=== PATIENT | female | born 1975 | race American Indian/Alaskan Native ===

== ENCOUNTER 2017-09-28 10:30 | Emergency (ER) | payer OTHER ==
[2017-09-28 11:35] VITALS: BP 124/74
--- NOTE | 2017-09-28 12:13 | Emergency Department Report ---
ED Lower Extremity HPI - General Chief Complaint: Extremity Injury, Lower Stated Complaint: RIGHT ANKLE PAIN Time Seen by Provider: 09/28/17 11:57 Source: patient Mode of arrival: Ambulatory Limitations: No Limitations - History of Present Illness Initial Comments: This is a 42-year-old female nontoxic, well nourished in appearance, no acute signs of distress presents to the ED with c/o of rightl ankle pain. Patient stated she has a fracture of left ankle and has been putting a lot of weight on the right ankle. Patient denies any trauma to the area. Patient denies any joint redness, joint swelling, fever, chills, nausea, vomiting, chest pain or shortness breath. Patient denies abnormal or decreased gait. Patient denies any allergies or PMH. MD Complaint: ankle injury Injury: Ankle: Right, Left Severity: mild Severity scale (0 -10): 8 Improves With: immobilization Worsens With: weight bearing, movement Associated Symptoms: able to partially bear weight, ambulatory. denies: snap/ pop sensation, swelling, numbness, tingling, unable to bear weight - Related Data Previous Rx's Medication Instructions Recorded Last Taken Type HYDROcodone/APAP 5-325 [[place] 1 each PO Q6HR PRN #12 tablet 11/12/15 Unknown Rx 5/325] Tobramycin/Dexameth 0.3-0.1% 1 drops OS Q6H #1 bottle 11/12/15 Unknown Rx [Tobradex] Ibuprofen [Motrin] 600 mg PO Q8H PRN #30 tablet 09/28/17 Unknown Rx Allergies Allergy/AdvReac Type Severity Reaction Status Date / Time No Known Allergies Allergy Verified 11/12/15 07:46 ED Review of Systems ROS: Stated complaint: RIGHT ANKLE PAIN Other details as noted in HPI Constitutional: denies: chills, fever Eyes: denies: eye pain, eye discharge, vision change ENT: denies: ear pain, throat pain Respiratory: denies: cough, shortness of breath, wheezing Cardiovascular: denies: chest pain, palpitations Endocrine: no symptoms reported Gastrointestinal: denies: abdominal pain, nausea, diarrhea Genitourinary: denies: urgency, dysuria, discharge Musculoskeletal: arthralgia. denies: back pain, joint swelling Skin: denies: rash, lesions Neurological: denies: headache, weakness, paresthesias Psychiatric: denies: anxiety, depression Hematological/Lymphatic: denies: easy bleeding, easy bruising ED Past Medical Hx - Past Medical History Previous Medical History?: Yes Additional medical history: left ankle pain - Surgical History Past Surgical History?: Yes Hx Cholecystectomy: Yes Additional Surgical History: Hernia Repair, Tubal Ligation, , left ankle surgery - Social History Smoking Status: Current Every Day Smoker Substance Use Type: Alcohol - Medications Home Medications: Home Medications Medication Instructions Recorded Confirmed Last Taken Type HYDROcodone/APAP 5-325 [[place] 1 each PO Q6HR PRN #12 tablet 11/12/15 Unknown Rx 5/325] Tobramycin/Dexameth 0.3-0.1% 1 drops OS Q6H #1 bottle 11/12/15 Unknown Rx [Tobradex] Ibuprofen [Motrin] 600 mg PO Q8H PRN #30 tablet 09/28/17 Unknown Rx ED Physical Exam - General Limitations: No Limitations General appearance: alert, in no apparent distress - Head Head exam: Present: atraumatic, normocephalic - Eye Eye exam: Present: normal appearance Pupils: Present: normal accommodation - ENT ENT exam: Present: normal exam, mucous membranes moist - Neck Neck exam: Present: normal inspection, full ROM. Absent: tenderness, meningismus, lymphadenopathy - Respiratory Respiratory exam: Present: normal lung sounds bilaterally. Absent: respiratory distress, wheezes, rales, rhonchi, stridor, chest wall tenderness, accessory muscle use, decreased breath sounds, prolonged expiratory - Cardiovascular Cardiovascular Exam: Present: regular rate, normal rhythm, normal heart sounds. Absent: irregular rhythm, systolic murmur, diastolic murmur, rubs, gallop - GI/Abdominal GI/Abdominal exam: Present: soft, normal bowel sounds. Absent: distended, tenderness, guarding, rebound, rigid, diminished bowel sounds - Rectal Rectal exam: Present: deferred - Extremities Exam Extremities exam: Present: normal inspection, full ROM, tenderness, normal capillary refill. Absent: joint swelling, calf tenderness - Back Exam Back exam: Present: normal inspection, full ROM - Neurological Exam Neurological exam: Present: alert, oriented X3 - Psychiatric Psychiatric exam: Present: normal affect, normal mood - Skin Skin exam: Present: warm, dry, intact, normal color. Absent: rash ED Course Vital Signs 09/28/17 11:29 Temperature 98.7 F Pulse Rate 98 H Respiratory 20 Rate Blood Pressure 124/74 O2 Sat by Pulse 98 Oximetry - Reevaluation(s) Reevaluation #1: 09/28/17 12:20 Patient is speaking in full sentences with no signs of distress noted. ED Lower Extremity MDM - Medical Decision Making This is a 42-year-old female that presents with right ankle strain. Patient is stable and was examined by me. I referred patient to an orthopedic doctor for further evaluation for possible MRI. X-ray has been obtained and dictated by the radiologist. Patient is notified of the x-ray report with noted by the patient. Patient does have normal gait with no tenderness and no joint swelling. No ecchymosis. no joint redness or swelling. Not warm to touch. No signs of cellulites present. Patient received ankle stirrup and crutches and was educated by RN how to use crutches. Patient was instructed to RICE therapy. Patient received Motrin for pain. Patient is discharged with Motrin. At time of discharge, the patient does not seem toxic or ill in appearance. No acute signs of distress noted. Patient agrees to discharge treatment plan of care. No further questions noted by the patient. Critical care attestation.: If time is entered above; I have spent that time in minutes in the direct care of this critically ill patient, excluding procedure time. ED Disposition Clinical Impression: Right ankle strain Qualifiers: Encounter type: initial encounter Qualified Code(s): S96.911A - Strain of unspecified muscle and tendon at ankle and foot level, right foot, initial encounter Disposition: DC- TO HOME OR SELFCARE Is pt being admited?: No Does the pt Need Aspirin: No Condition: Stable Instructions: Ankle Exercises (GEN), RICE Therapy (ED), Ibuprofen (By mouth), Crutch Instructions (ED) Additional Instructions: Follow-up with a orthopedic doctor in 3-5 days or if symptoms worsen and continue return to emergency room as soon as possible. Prescriptions: Ibuprofen [Motrin] 600 mg PO Q8H PRN #30 tablet PRN Reason: Pain Referrals: PRIMARY CARE, [Primary Care Provider] - 3-5 Days MARION ANTONIO MD [Staff Physician] - 3-5 Days MICHAEL GASTELUM MD [Staff Physician] - 3-5 Days [facility] [Outside] - 3-5 Days [facility] [Outside] - 3-5 Days Forms: Work/School Release Form(ED)
[2017-09-28 12:41] LABS: HCG Qualitative,Urine Negative (Negative)
--- NOTE | 2017-09-28 13:18 | XRay Report ---
Bilateral ankles: Pain. Images of the right ankle demonstrates moderate edema of the soft tissues involving the leg and extending into the proximal foot. The bony structures and joints appear intact with good alignment and preservation of the joint spaces. Stabilization hardware is present on the left with a plate overlying the distal fibula and a fixation screw through the medial malleolus. There is good bony union in both locations with no displacement. The tibiotalar joint is aligned. The bones are well-mineralized. There is mild edema of the tissues in a nonspecific pattern similar to the right leg. Impressions: No acute findings. Nonspecific soft tissue edema bilaterally.
== END 2017-09-28 14:19 | disposition home or self-care (01) ==
LOC: ED 10:30
DX: S96.911A Strain of unspecified muscle and tendon at ankle and foot level, right foot, initial encounter (principal); F17.200 Nicotine dependence, unspecified, uncomplicated; X58.XXXA Exposure to other specified factors, initial encounter; Y93.89 Activity, other specified; Y92.89 Other specified places as the place of occurrence of the external cause; Y99.8 Other external cause status
CPT/HCPCS: 81025; 99284

== ENCOUNTER 2018-12-14 22:15 | Emergency (ER) | payer OTHER ==
[2018-12-14 22:28] VITALS: BP 121/79
--- NOTE | 2018-12-14 23:01 | Event Note ---
ED Screening Note Date of service: 12/14/18 Time: 22:55 ED Screening Note: 43 female comes in for abd pain and abd pressure times 1 week and getting worst. LMP 11/21/18. . Urinary frequency. This initial assessment/diagnostic orders/clinical plan/treatment(s) is/are subject to change based on patients health status, clinical progression and re- assessment by fellow clinical providers in the ED. Further treatment and workup at subsequent clinical providers discretion. Patient/guardian urged not to elope from the ED as their condition may be serious if not clinically assessed and managed. Initial orders include:
[2018-12-15 01:24] LABS: Bilirubin,Urine NEG (Negative); Blood,Urine MOD (Negative); Color,Urine Yellow (Yellow); Mucus,Urine 1+ /HPF; Protein,Urine <15 mg/dL mg/dL (Negative)
[2018-12-15 01:35] LABS: HCG Qualitative,Urine Negative (Negative)
[2018-12-15] MEDS ORDERED: TORADOL IV ONE (01:56)
[2018-12-15] MEDS ORDERED: ZOFRAN IV ONE (01:56)
[2018-12-15 03:00] LABS: Alanine Aminotransferase 9 units/L (7-56); Albumin 4.2 g/dL (3.9-5); BUN/Creatinine Ratio 12; Blood Urea Nitrogen 11 mg/dL (7-17); Calcium 9.1 mg/dL (8.4-10.2); Hemolysis Index 5
[2018-12-15 03:11] LABS: Hemoglobin 12.7 gm/dl (10.1-14.3); Mean Corpuscular HGB Conc 33 % (30-34); Mean Corpuscular Volume 89 fl (79-97); Red Blood Count 4.27 M/mm3 (3.65-5.03)
[2018-12-15 03:12] LABS: Basophils # (Auto) 0.1 K/mm3 (0.0-0.1); Eosinophils # (Auto) 0.6 K/mm3 (0.0-0.4); Eosinophils % (Auto) 4.3 % (0.0-4.3); Lymphocytes # (Auto) 4.2 K/mm3 (1.2-5.4); Lymphocytes % (Auto) 32.5 % (13.4-35.0); Mean Platelet Volume 7.9 fl (6-12); Monocytes # (Auto) 1.2 K/mm3 (0.0-0.8); Monocytes % (Auto) 9.3 % (0.0-7.3); Platelet Count 311 K/mm3 (140-440); Red Cell Distribution Width 13.9 % (13.2-15.2)
--- NOTE | 2018-12-15 03:12 | Cat Scan Report ---
. CT of the abdomen and pelvis without contrast INDICATION: Left flank pain and nausea COMPARISON: None FINDINGS: Lung bases are clear. The liver, spleen, pancreas, adrenal glands and kidneys all appear no rmal. There are no calculi seen in either kidney. No hydronephrosis or perinephric edema. No gross re nal masses. Gallbladder is been removed. No biliary tree dilation. No fluid or adenopathy in the uppe r abdomen. CT of the pelvis shows a normal appendix. Small ovarian cysts are seen without free fluid. Uterus is enlarged probably due to fibroids. There may be a suture line in the upper bladder or uterine fundus. No adenopathy. No hernia or bowel obstruction. No diverticulitis. No ureteral stones are seen. No st one fragments seen in the bladder. IMPRESSION: Probable fibroid uterus. No kidney stones or inflammatory process seen. Automated exposure control was utilized to diminish radiation dose. Signer Name: Prosper Sotelo MD Signed: 12/15/2018 3:08 AM Workstation Name: [id number]
--- NOTE | 2018-12-15 04:39 | Emergency Department Report ---
ED Abdominal Pain HPI - General Chief Complaint: Abdominal Pain Stated Complaint: ABD PAIN/HEADACHE Time Seen by Provider: 12/14/18 22:55 Source: patient Mode of arrival: Ambulatory Limitations: No Limitations - History of Present Illness Initial Comments: Patient is a 43-year-old -Japanese female medical history who presents to the ED with acute onset persistent intermittent abdominal pain with intermittent nausea and vomiting and cannot assess the last one week. Patient states that the pain is persistent, crampy and intermittent. Patient denies dizziness, fever, chills, diarrhea, low back pain, change in vision, vaginal bleeding, vaginal discharge, dyspareunia, chest pain, shortness of breath, headache, hematemesis, hematochezia, or dysuria or urinary frequency and urgency. MD Complaint: abdominal pain, other (Nausea and vomiting) -: Sudden, week(s) (1) Location: suprapubic Radiation: suprapubic Migration to: no migration Severity: severe Severity scale (0 -10): 6 Quality: cramping, aching Consistency: constant Improves With: nothing Worsens With: nothing Associated Symptoms: denies other symptoms, nausea, vomiting. denies: diarrhea, constipation, dysuria, hematochezia, melena, anorexia - Related Data LMP (females 10-50): last week Previous Rx's Medication Instructions Recorded Last Taken Type HYDROcodone/APAP 5-325 [[place] 1 each PO Q6HR PRN #12 tablet 11/12/15 Unknown Rx 5/325] Tobramycin/Dexameth 0.3-0.1% 1 drops OS Q6H #1 bottle 11/12/15 Unknown Rx [Tobradex] Ibuprofen [Motrin] 600 mg PO Q8H PRN #30 tablet 09/28/17 Unknown Rx Acetaminophen/Codeine [Tylenol 1 tab PO Q6H PRN #15 tab 12/15/18 Unknown Rx /Codeine # 3 tab] Naproxen [Naprosyn TAB] 500 mg PO Q12H PRN #20 tablet 12/15/18 Unknown Rx Ondansetron [Zofran Odt] 4 mg PO Q6HR PRN #15 tab.rapdis 12/15/18 Unknown Rx metroNIDAZOLE [Flagyl] 500 mg PO Q12HR #14 tab 12/15/18 Unknown Rx Allergies Allergy/AdvReac Type Severity Reaction Status Date / Time No Known Allergies Allergy Verified 11/12/15 07:46 ED Review of Systems ROS: Stated complaint: ABD PAIN/HEADACHE Other details as noted in HPI Constitutional: denies: chills, fever Eyes: denies: eye pain, eye discharge, vision change ENT: denies: ear pain, throat pain Respiratory: denies: cough, shortness of breath, wheezing Cardiovascular: denies: chest pain, palpitations Endocrine: no symptoms reported Gastrointestinal: abdominal pain, nausea, vomiting. denies: diarrhea Genitourinary: denies: urgency, dysuria, discharge Musculoskeletal: denies: back pain, joint swelling, arthralgia Skin: denies: rash, lesions Neurological: denies: headache, weakness, paresthesias Psychiatric: denies: anxiety, depression Hematological/Lymphatic: denies: easy bleeding, easy bruising ED Past Medical Hx - Past Medical History Additional medical history: left ankle pain - Surgical History Hx Cholecystectomy: Yes Additional Surgical History: Hernia Repair, Tubal Ligation, , left ankle surgery - Social History Smoking Status: Current Every Day Smoker Substance Use Type: Alcohol - Medications Home Medications: Home Medications Medication Instructions Recorded Confirmed Last Taken Type HYDROcodone/APAP 5-325 [[place] 1 each PO Q6HR PRN #12 tablet 11/12/15 Unknown Rx 5/325] Tobramycin/Dexameth 0.3-0.1% 1 drops OS Q6H #1 bottle 11/12/15 Unknown Rx [Tobradex] Ibuprofen [Motrin] 600 mg PO Q8H PRN #30 tablet 09/28/17 Unknown Rx Acetaminophen/Codeine [Tylenol 1 tab PO Q6H PRN #15 tab 12/15/18 Unknown Rx /Codeine # 3 tab] Naproxen [Naprosyn TAB] 500 mg PO Q12H PRN #20 tablet 12/15/18 Unknown Rx Ondansetron [Zofran Odt] 4 mg PO Q6HR PRN #15 tab.rapdis 12/15/18 Unknown Rx metroNIDAZOLE [Flagyl] 500 mg PO Q12HR #14 tab 12/15/18 Unknown Rx ED Physical Exam - General Limitations: No Limitations General appearance: alert, in no apparent distress - Head Head exam: Present: atraumatic, normocephalic, normal inspection - Eye Eye exam: Present: normal appearance, PERRL, EOMI. Absent: scleral icterus, conjunctival injection, nystagmus Pupils: Present: normal accommodation - ENT ENT exam: Present: normal exam, normal orophraynx, mucous membranes moist, TM's normal bilaterally, normal external ear exam - Neck Neck exam: Present: normal inspection, full ROM. Absent: tenderness, meningismus, lymphadenopathy, thyromegaly - Respiratory Respiratory exam: Present: normal lung sounds bilaterally. Absent: respiratory distress, wheezes, rales, rhonchi, chest wall tenderness, accessory muscle use, prolonged expiratory - Cardiovascular Cardiovascular Exam: Present: regular rate, normal rhythm, normal heart sounds. Absent: systolic murmur, diastolic murmur, rubs, gallop - GI/Abdominal GI/Abdominal exam: Present: soft, tenderness (suprapubic), normal bowel sounds. Absent: hyperactive bowel sounds, hypoactive bowel sounds, organomegaly, mass - Rectal Rectal exam: Present: deferred - Extremities Exam Extremities exam: Present: normal inspection, full ROM, normal capillary refill - Back Exam Back exam: Present: normal inspection, full ROM. Absent: tenderness, CVA tenderness (R), CVA tenderness (L), muscle spasm - Neurological Exam Neurological exam: Present: alert, oriented X3, CN II-XII intact, normal gait, reflexes normal - Psychiatric Psychiatric exam: Present: normal affect, normal mood - Skin Skin exam: Present: warm, dry, intact, normal color. Absent: rash ED Course Vital Signs 12/14/18 22:26 Temperature 98.0 F Pulse Rate 100 H Respiratory 16 Rate Blood Pressure 121/79 O2 Sat by Pulse 97 Oximetry - Reevaluation(s) Reevaluation #1: 12/15/18 04:40 This is a 33-year-old female who presented to the ED with abdominal pain and nausea and vomiting. In the ED, patient is alert and oriented 3 and is not in distress with normal vital signs. Patient was treated for pain in the ED and on reevaluation, patient's pain is well controlled. Lab test results were reviewed including UA. Lab test results were reviewed and are remarkable for acute leukocytosis of 12,900. Urinalysis shows moderate blood in the urine. Abdomen pelvis CT scan w/o contrast shows a normal appendix. No evidence of kidney stones or inflammatory process. There is however a probable fibroid uterus. Patient was discharged home on medications for pain and advised follow-up with her primary care physician in 5-7 days for reevaluation. Patient advised to return to the ED immediately if symptoms get worse. ED Medical Decision Making - Lab Data Result diagrams: 12/15/18 02:14 12/15/18 02:14 - Radiology Data Radiology results: report reviewed, image reviewed Findings [facility] [address] [place] [address] Cat Scan Report Signed Patient: GERARD ALCAZAR MR#: [id number] : 1975 Acct:[id number] Age/Sex: 43 / F ADM Date: 12/14/18 Loc: ED Attending Dr: Ordering Physician: EMILE SOTO Date of Service: 12/15/18 Procedure(s): CT abdomen pelvis wo con Accession Number(s): [id number] cc: EMILE SOTO . CT of the abdomen and pelvis without contrast INDICATION: Left flank pain and nausea COMPARISON: None FINDINGS: Lung bases are clear. The liver, spleen, pancreas, adrenal glands and kidneys all appear normal. There are no calculi seen in either kidney. No hydronephrosis or perinephric edema. No gross renal masses. Gallbladder is been removed. No biliary tree dilation. No fluid or adenopathy in the upper abdomen. CT of the pelvis shows a normal appendix. Small ovarian cysts are seen without free fluid. Uterus is enlarged probably due to fibroids. There may be a suture line in the upper bladder or uterine fundus. No adenopathy. No hernia or bowel obstruction. No diverticulitis. No ureteral stones are seen. No stone fragments seen in the bladder. IMPRESSION: Probable fibroid uterus. No kidney stones or inflammatory process seen. Automated exposure control was utilized to diminish radiation dose. Signer Name: Prosper Sotelo MD Signed: 12/15/2018 3:08 AM Workstation Name: [id number] Transcribed By: SEDRICK Dictated By: Prosper Sotelo MD Electronically Authenticated By: Prosper Sotelo MD Signed Date/Time: 12/15/18 0308 - Medical Decision Making This is a 33-year-old female who presented to the ED with abdominal pain and nausea and vomiting. In the ED, patient is alert and oriented 3 and is not in distress with normal vital signs. Patient was treated for pain in the ED and on reevaluation, patient's pain is well controlled. Lab test results were reviewed including UA. Lab test results were reviewed and are remarkable for acute leukocytosis of 12,900. Urinalysis shows moderate blood in the urine. Abdomen pelvis CT scan w/o contrast shows a normal appendix. No evidence of kidney stones or inflammatory process. There is however a probable fibroid uterus. Patient was discharged home on medications for pain and advised follow- up with her primary care physician in 5-7 days for reevaluation. Patient advised to return to the ED immediately if symptoms get worse. - Differential Diagnosis abdominal pain, kidney stones, Acute UTI; Uterine fibroid, appendicitis Critical care attestation.: If time is entered above; I have spent that time in minutes in the direct care of this critically ill patient, excluding procedure time. ED Disposition Clinical Impression: Nausea and vomiting in adult, Vaginal discharge Abdominal pain Qualifiers: Abdominal location: lower abdomen, unspecified Qualified Code(s): R10.30 - Lower abdominal pain, unspecified Uterine fibroid Qualifiers: Uterine leiomyoma location: unspecified location Qualified Code(s): D25.9 - Leiomyoma of uterus, unspecified Disposition: DC- TO HOME OR SELFCARE Is pt being admited?: No Does the pt Need Aspirin: No Condition: Stable Instructions: Abdominal Pain (ED), Uterine Fibroids (ED) Additional Instructions: Take medications with food, drink plenty of fluids and follow up with your primary care physician in 5-7 days for reevaluation. Return to the ED immediately if symptoms get worse. Prescriptions: metroNIDAZOLE [Flagyl] 500 mg PO Q12HR #14 tab Naproxen [Naprosyn TAB] 500 mg PO Q12H PRN #20 tablet PRN Reason: Pain , Severe (7-10) Acetaminophen/Codeine [Tylenol /Codeine # 3 tab] 1 tab PO Q6H PRN #15 tab PRN Reason: Pain , Severe (7-10) Ondansetron [Zofran Odt] 4 mg PO Q6HR PRN #15 tab.rapdis PRN Reason: Nausea Referrals: [facility] MD TRACY [Primary Care Provider] - 3-5 Days Time of Disposition: 04:48 Print Language: ARMENIAN
== END 2018-12-15 05:12 | disposition home or self-care (01) ==
LOC: ED 22:15
DX: D25.9 Leiomyoma of uterus, unspecified (principal); M25.572 Pain in left ankle and joints of left foot; F17.200 Nicotine dependence, unspecified, uncomplicated; Z90.49 Acquired absence of other specified parts of digestive tract; Z98.890 Other specified postprocedural states; Z98.51 Tubal ligation status; Z79.899 Other long term (current) drug therapy
CPT/HCPCS: 36415; 74176; 80053; 81001; 81025; 83690; 85025; 96374; 96375; 99284; J1885; J2405

== ENCOUNTER 2019-04-03 14:21 | Emergency (ER) | payer SELFPAY ==
[2019-04-03 14:30] VITALS: BP 135/93
--- NOTE | 2019-04-03 14:42 | Event Note ---
ED Screening Note ED Screening Note: lower back pain lower abd pain vaginal discharge with odor LNMP: 03/15/19 no PMHx no allergies to meds This initial assessment/diagnostic orders/clinical plan/treatment(s) is/are subject to change based on patients health status, clinical progression and re- assessment by fellow clinical providers in the ED. Further treatment and workup at subsequent clinical providers discretion. Patient/guardian urged not to elope from the ED as their condition may be serious if not clinically assessed and managed. Initial orders include: UA, urine preg
[2019-04-03 15:50] LABS: Bilirubin,Urine NEG (Negative); Blood,Urine MOD (Negative); Color,Urine Yellow (Yellow); Mucus,Urine FEW /HPF; Protein,Urine <15 mg/dL mg/dL (Negative); Urobilinogen,Urine < 2.0 mg/dL (<2.0)
[2019-04-03 15:52] LABS: HCG Qualitative,Urine Negative (Negative)
--- NOTE | 2019-04-03 16:08 | Emergency Department Report ---
ED Abdominal Pain HPI - General Chief Complaint: Urogenital-Female Stated Complaint: ABD PAIN/BACK PAIN/ODOR Time Seen by Provider: 04/03/19 14:41 Source: patient Mode of arrival: Ambulatory Limitations: No Limitations - History of Present Illness Initial Comments: 44-year-old -[place] female presents to the emergency room complaining of vaginal discharge abdominal pain and back pain 2 weeks. Patient states that she's just been taken Tylenol. Patient reports that her discomfort started off with vaginal discharge with odor and now it's in her lower pelvis and back. Patient does admit to having sexual intercourse with 2 men unprotected in the last 6 months. Patient is concern for STD. Patient's last menstrual period was 03/15/2019 she is 3 para 3. Patient denies any fever chills no nausea no vomiting. MD Complaint: abdominal pain Onset/Timin -: week(s) Location: suprapubic, bilateral flank Radiation: none Severity: moderate Quality: aching Consistency: intermittent Improves With: nothing Worsens With: nothing - Related Data Previous Rx's Medication Instructions Recorded Last Taken Type HYDROcodone/APAP 5-325 [[place] 1 each PO Q6HR PRN #12 tablet 11/12/15 Unknown Rx 5/325] Tobramycin/Dexameth 0.3-0.1% 1 drops OS Q6H #1 bottle 11/12/15 Unknown Rx [Tobradex] Ibuprofen [Motrin] 600 mg PO Q8H PRN #30 tablet 09/28/17 Unknown Rx Acetaminophen/Codeine [Tylenol 1 tab PO Q6H PRN #15 tab 12/15/18 Unknown Rx /Codeine # 3 tab] Fluconazole [Diflucan TAB] 150 mg PO ONCE #1 tablet 12/15/18 Unknown Rx Naproxen [Naprosyn TAB] 500 mg PO Q12H PRN #20 tablet 12/15/18 Unknown Rx Ondansetron [Zofran Odt] 4 mg PO Q6HR PRN #15 tab.rapdis 12/15/18 Unknown Rx metroNIDAZOLE [Flagyl TAB] 500 mg PO Q12HR #14 tab 04/03/19 Unknown Rx Allergies Allergy/AdvReac Type Severity Reaction Status Date / Time No Known Allergies Allergy Verified 11/12/15 07:46 ED Review of Systems ROS: Stated complaint: ABD PAIN/BACK PAIN/ODOR Other details as noted in HPI Comment: All other systems reviewed and negative ED Past Medical Hx - Past Medical History Previous Medical History?: Yes Additional medical history: left ankle pain - Surgical History Past Surgical History?: Yes Hx Cholecystectomy: Yes Additional Surgical History: Hernia Repair, Tubal Ligation, , left ankle surgery - Social History Smoking Status: Current Every Day Smoker Substance Use Type: Alcohol, Marijuana - Medications Home Medications: Home Medications Medication Instructions Recorded Confirmed Last Taken Type HYDROcodone/APAP 5-325 [[place] 1 each PO Q6HR PRN #12 tablet 11/12/15 Unknown Rx 5/325] Tobramycin/Dexameth 0.3-0.1% 1 drops OS Q6H #1 bottle 11/12/15 Unknown Rx [Tobradex] Ibuprofen [Motrin] 600 mg PO Q8H PRN #30 tablet 09/28/17 Unknown Rx Acetaminophen/Codeine [Tylenol 1 tab PO Q6H PRN #15 tab 12/15/18 Unknown Rx /Codeine # 3 tab] Fluconazole [Diflucan TAB] 150 mg PO ONCE #1 tablet 12/15/18 Unknown Rx Naproxen [Naprosyn TAB] 500 mg PO Q12H PRN #20 tablet 12/15/18 Unknown Rx Ondansetron [Zofran Odt] 4 mg PO Q6HR PRN #15 tab.rapdis 12/15/18 Unknown Rx metroNIDAZOLE [Flagyl TAB] 500 mg PO Q12HR #14 tab 04/03/19 Unknown Rx ED Physical Exam - General Limitations: No Limitations General appearance: alert, in no apparent distress - Head Head exam: Present: atraumatic, normocephalic - Eye Eye exam: Present: normal appearance - ENT ENT exam: Present: mucous membranes moist - GI/Abdominal GI/Abdominal exam: Present: soft, tenderness, normal bowel sounds - External exam: Present: normal external exam Speculum exam: Present: vaginal discharge Bi-manual exam: Present: normal bi-manual exam - Extremities Exam Extremities exam: Present: normal inspection, full ROM - Back Exam Back exam: Present: normal inspection - Neurological Exam Neurological exam: Present: alert, oriented X3, normal gait - Psychiatric Psychiatric exam: Present: normal affect, normal mood - Skin Skin exam: Present: warm, dry, intact, normal color. Absent: rash ED Course Vital Signs 04/03/19 14:26 Temperature 98.4 F Pulse Rate 79 Respiratory 20 Rate Blood Pressure 135/93 O2 Sat by Pulse 100 Oximetry ED Medical Decision Making - Medical Decision Making 44-year-old -[place] female presents to the emergency room complaining of vaginal discharge abdominal pain and back pain 2 weeks. Patient states that she's just been taken Tylenol. Patient reports that her discomfort started off with vaginal discharge with odor and now it's in her lower pelvis and back. Patient does admit to having sexual intercourse with 2 men unprotected in the last 6 months. Patient is concern for STD. Patient's last menstrual period was 03/15/2019 she is 3 para 3. Patient denies any fever chills no nausea no vomiting. Patient wet prep came back positive for moderate trichomonas and greater than 20% clue cells. Patient be treated accordingly with Flagyl. Critical care attestation.: If time is entered above; I have spent that time in minutes in the direct care of this critically ill patient, excluding procedure time. ED Disposition Clinical Impression: Trichomonas vaginalis infection, Bacterial vaginosis Disposition: - TO HOME OR SELFCARE Is pt being admited?: No Does the pt Need Aspirin: No Condition: Stable Instructions: Bacterial Vaginosis (ED), Trichomoniasis (ED), Sexually Transmitted Diseases (ED), Safe Sex (ED) Additional Instructions: Please follow up at the health department for further STD screening and treatments. You need to be tested for HIV, syphilis, herpes, hepatitis Prescriptions: metroNIDAZOLE [Flagyl TAB] 500 mg PO Q12HR #14 tab Referrals: [facility] [Outside] - 3-5 Days Forms: STI Treatment and Prevention
== END 2019-04-03 18:43 | disposition home or self-care (01) ==
LOC: ED 14:21
DX: A59.01 Trichomonal vulvovaginitis (principal); F17.200 Nicotine dependence, unspecified, uncomplicated; F10.10 Alcohol abuse, uncomplicated; F12.10 Cannabis abuse, uncomplicated; Z90.49 Acquired absence of other specified parts of digestive tract; Z98.890 Other specified postprocedural states; Z79.899 Other long term (current) drug therapy
CPT/HCPCS: 81001; 81025; 87210; 87591

== ENCOUNTER 2019-04-21 11:23 | Emergency (ER) | payer SELFPAY ==
[2019-04-21 11:30] VITALS: BP 125/77
--- NOTE | 2019-04-21 12:07 | Emergency Department Report ---
- HPI History of Present Illness: 44 y/o female female comes in for flu like symptoms for 3 days. Fever, backaches, dizziness. Has taken OTC medications. - Exam Vital Signs: Vital Signs 04/21/19 11:28 Temperature 99.3 F Pulse Rate 113 H Respiratory 20 Rate Blood Pressure 125/77 O2 Sat by Pulse 99 Oximetry Physical Exam: AxO times 3 NAD ambulating well. Chest CTA heart mild tachy MSE screening note: Focused history and physical exam performed. Due to findings the following was ordered: 44 y/o female female comes in for flu like symptoms for 3 days. Fever, backaches, dizziness. Has taken OTC medications. Patient appears to have the flu. She is past the recommend days for Tamiflu. Increase fluids advance diet as tolerated. <MARYANNE COLE - Last Filed: 04/21/19 12:03> - Exam Vital Signs: Vital Signs 04/21/19 11:28 Temperature 99.3 F Pulse Rate 113 H Respiratory 20 Rate Blood Pressure 125/77 O2 Sat by Pulse 99 Oximetry MSE screening note: Focused history and physical exam performed. Due to findings the following was ordered: <CHAVA GIRARD P - Last Filed: 05/03/19 02:32> Chief Complaint: Upper Respiratory Infection Stated Complaint: FLU LIKE SYMPTOMS Time Seen by Provider: 04/21/19 12:02 ED Medical Decision Making - Medical Decision Making Attestation: Available for consultation <CHAVA GIRARD P - Last Filed: 05/03/19 02:32> ED Disposition for MSE <MARYANNE COLE - Last Filed: 04/21/19 12:03> Is pt being admited?: No <CHAVA GIRARD P - Last Filed: 05/03/19 02:32> Disposition: Z-07 MED SCREENING EXAM-LEFT Condition: Stable Referrals: PRIMARY CARE, [Primary Care Provider] - 3-5 Days
== END 2019-04-21 13:06 | disposition left against medical advice (07) ==
LOC: ED 11:23
DX: J11.1 Influenza due to unidentified influenza virus with other respiratory manifestations (principal); Z53.21 Procedure and treatment not carried out due to patient leaving prior to being seen by health care provider

== ENCOUNTER 2020-04-05 10:26 | Emergency (ER) | payer SELFPAY ==
[2020-04-05 10:38] VITALS: BP 123/79
--- NOTE | 2020-04-05 11:27 | Emergency Department Report ---
ED Back Pain/Injury HPI - General Chief Complaint: Back Pain/Injury Stated Complaint: LOW BACK PAIN/RASH ON FEET Time Seen by Provider: 04/05/20 11:22 Source: patient Limitations: No Limitations - History of Present Illness Initial Comments: Patient is a 45-year-old female presents emergency room with complaints of right lower back pain that radiates to her right buttock into her right leg that began a month ago but worsened last night. She denies any fall or injury. She denies ever having in the past. 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 She denies any nausea, vomiting, diarrhea, fever, dysuria, urinary frequency, dark urine, numbness, weakness, bowel or bladder incontinence. She denies any past medical history. No allergies to medications. Last menstrual cycle 02/2020. - Related Data Previous Rx's Medication Instructions Recorded Last Taken Type HYDROcodone/APAP 5-325 [[place] 1 each PO Q6HR PRN #12 tablet 11/12/15 Unknown Rx 5/325] Tobramycin/Dexameth 0.3-0.1% 1 drops OS Q6H #1 bottle 11/12/15 Unknown Rx [Tobradex] Ibuprofen [Motrin] 600 mg PO Q8H PRN #30 tablet 09/28/17 Unknown Rx Acetaminophen/Codeine [Tylenol 1 tab PO Q6H PRN #15 tab 12/15/18 Unknown Rx /Codeine # 3 tab] Fluconazole (Nf) [Diflucan TAB] 150 mg PO ONCE #1 tablet 12/15/18 Unknown Rx Naproxen [Naprosyn TAB] 500 mg PO Q12H PRN #20 tablet 12/15/18 Unknown Rx Ondansetron [Zofran Odt] 4 mg PO Q6HR PRN #15 tab.rapdis 12/15/18 Unknown Rx metroNIDAZOLE [Flagyl TAB] 500 mg PO Q12HR #14 tab 04/03/19 Unknown Rx Naproxen [EC-Naprosyn] 500 mg PO BID PRN #14 tablet. 04/05/20 Unknown Rx Prednisone [predniSONE 10 mg 10 mg PO .TAPER #1 tab.ds.pk 04/05/20 Unknown Rx (6-Day Pack, 21 Tabs)] Triamcinolone 0.1% [Kenalog 0.1% 1 applic TP TID #1 tube 04/05/20 Unknown Rx CREAM] methOCARBAMOL [Robaxin TAB] 500 mg PO BID PRN #14 tab 04/05/20 Unknown Rx Allergies Allergy/AdvReac Type Severity Reaction Status Date / Time No Known Allergies Allergy Verified 04/21/19 11:24 ED Review of Systems ROS: Stated complaint: LOW BACK PAIN/RASH ON FEET Other details as noted in HPI Comment: All other systems reviewed and negative ED Past Medical Hx - Past Medical History Previous Medical History?: Yes Additional medical history: left ankle pain - Surgical History Hx Cholecystectomy: Yes Additional Surgical History: Hernia Repair, Tubal Ligation, , left ankle surgery - Social History Smoking Status: Never Smoker Substance Use Type: None - Medications Home Medications: Home Medications Medication Instructions Recorded Confirmed Last Taken Type HYDROcodone/APAP 5-325 [[place] 1 each PO Q6HR PRN #12 tablet 11/12/15 Unknown Rx 5/325] Tobramycin/Dexameth 0.3-0.1% 1 drops OS Q6H #1 bottle 11/12/15 Unknown Rx [Tobradex] Ibuprofen [Motrin] 600 mg PO Q8H PRN #30 tablet 09/28/17 Unknown Rx Acetaminophen/Codeine [Tylenol 1 tab PO Q6H PRN #15 tab 12/15/18 Unknown Rx /Codeine # 3 tab] Fluconazole (Nf) [Diflucan TAB] 150 mg PO ONCE #1 tablet 12/15/18 Unknown Rx Naproxen [Naprosyn TAB] 500 mg PO Q12H PRN #20 tablet 12/15/18 Unknown Rx Ondansetron [Zofran Odt] 4 mg PO Q6HR PRN #15 tab.rapdis 12/15/18 Unknown Rx metroNIDAZOLE [Flagyl TAB] 500 mg PO Q12HR #14 tab 04/03/19 Unknown Rx Naproxen [EC-Naprosyn] 500 mg PO BID PRN #14 tablet.dr 04/05/20 Unknown Rx Prednisone [predniSONE 10 mg 10 mg PO .TAPER #1 tab.ds.pk 04/05/20 Unknown Rx (6-Day Pack, 21 Tabs)] Triamcinolone 0.1% [Kenalog 0.1% 1 applic TP TID #1 tube 04/05/20 Unknown Rx CREAM] methOCARBAMOL [Robaxin TAB] 500 mg PO BID PRN #14 tab 04/05/20 Unknown Rx ED Physical Exam - General Limitations: No Limitations General appearance: alert, in no apparent distress - Head Head exam: Present: atraumatic, normocephalic - Eye Eye exam: Present: normal appearance - ENT ENT exam: Present: mucous membranes moist - Neck Neck exam: Present: normal inspection, full ROM. Absent: tenderness - Respiratory Respiratory exam: Present: normal lung sounds bilaterally. Absent: respiratory distress, wheezes, rales, rhonchi, stridor, chest wall tenderness, accessory muscle use, decreased breath sounds, prolonged expiratory - Cardiovascular Cardiovascular Exam: Present: regular rate, normal rhythm, normal heart sounds. Absent: systolic murmur, diastolic murmur, rubs, gallop - Back Exam Back exam: Present: normal inspection, full ROM, paraspinal tenderness (right sided lumbar paraspinal muscular ttp, no midline C-spine, T-spine or L-spine ttp, no step offs, no deformities). Absent: CVA tenderness (R), CVA tenderness (L), vertebral tenderness - Neurological Exam Neurological exam: Present: alert, oriented X3, CN II-XII intact, normal gait. Absent: motor sensory deficit - Psychiatric Psychiatric exam: Present: normal affect, normal mood - Skin Skin exam: Present: warm, dry, rash (mild eczematous rash to the bilateral dorsal feet, no signs of infection) ED Course Vital Signs 04/05/20 10:37 Temperature 97.6 F Pulse Rate 91 H Respiratory 20 Rate Blood Pressure 123/79 O2 Sat by Pulse 98 Oximetry ED Medical Decision Making - Medical Decision Making Patient is a 45-year-old female presents emergency room with complaints of right lower back pain that radiates to her right buttock into her right leg that began a month ago but worsened last night. She denies any fall or injury. She denies ever having in the past. 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 She denies any nausea, vomiting, diarrhea, fever, dysuria, urinary frequency, dark urine, numbness, weakness, bowel or bladder incontinence. She denies any past medical history. No allergies to medications. Last menstrual cycle 02/2020. on exam: right sided lumbar paraspinal muscular ttp, no midline C-spine, T-spine or L-spine ttp, no step offs, no deformities, no focal neuro deficits, mild eczematous rash to the bilateral dorsal feet, no signs of infection. Examination appears consistent with sciatica versus muscle strain. Appears to also be having a mild exacerbation of her eczema. Patient has no red flag warning signs of back pain. No trauma, no unexplained weight loss, no neuro deficits, age is not greater than 50, no fever, no IV drug use, no steroid use, no history of cancer. Patient given prescription for prednisone. Also given prescription for triamcinolone. Advised patient Please use medication as prescribed. May use ice pack, heating pad, rest, Epsom salt bath. Follow-up with your primary care doctor. Follow-up with orthopedic/spine doctor. Do not drive or operate machinery while taking muscle relaxer Robaxin. Return to emergency room for any new or worsening symptoms. - Differential Diagnosis Muscle strain, DDD, bulging disc, radiculopathy, sciatica Critical care attestation.: If time is entered above; I have spent that time in minutes in the direct care of this critically ill patient, excluding procedure time. ED Disposition Clinical Impression: Acute eczema Back pain Qualifiers: Back pain location: low back pain Chronicity: acute Back pain laterality: right Sciatica presence: with sciatica Sciatica laterality: sciatica of right side Qualified Code(s): M54.41 - Lumbago with sciatica, right side Disposition: - TO HOME OR SELFCARE Is pt being admited?: No Does the pt Need Aspirin: No Condition: Stable Instructions: Eczema, Sciatica, Muscle Strain Additional Instructions: Please use medication as prescribed. May use ice pack, heating pad, rest, Epsom salt bath. Follow-up with your primary care doctor. Follow-up with orthopedic/spine doctor. Do not drive or operate machinery while taking muscle relaxer Robaxin. Return to emergency room for any new or worsening symptoms. Prescriptions: Naproxen [EC-Naprosyn] 500 mg PO BID PRN #14 tablet. PRN Reason: pain Triamcinolone 0.1% [Kenalog 0.1% CREAM] 1 applic TP TID #1 tube Prednisone [predniSONE 10 mg (6-Day Pack, 21 Tabs)] 10 mg PO .TAPER #1 tab.ds.pk methOCARBAMOL [Robaxin TAB] 500 mg PO BID PRN #14 tab PRN Reason: pain Referrals: [facility] [Provider Group] - 2-3 Days [facility] [Provider Group] - 2-3 Days GILMER BHATTI II, MD [Staff Physician] - 2-3 Days Time of Disposition: 11:25 Print Language: NORWEGI[place]
== END 2020-04-05 12:22 | disposition home or self-care (01) ==
LOC: ED 10:26
DX: L30.9 Dermatitis, unspecified (principal); M54.5 Low back pain; Z79.899 Other long term (current) drug therapy; Z98.51 Tubal ligation status; Z98.890 Other specified postprocedural states
CPT/HCPCS: 99281

== ENCOUNTER 2020-10-29 17:20 | Emergency (ER) | payer SELFPAY | END 2020-10-29 19:00 | disposition left against medical advice (07) | LOC: ED 17:20 | DX: K08.89 Other specified disorders of teeth and supporting structures (principal); Z53.21 Procedure and treatment not carried out due to patient leaving prior to being seen by health care provider ==

== ENCOUNTER 2021-10-01 19:53 | Emergency (ER) | payer OTHER ==
[2021-10-01 20:48] VITALS: BP 103/59
[2021-10-01 21:32] LABS: Bilirubin,Urine NEG (Negative); Blood,Urine SM (Negative); Color,Urine Yellow (Yellow); Mucus,Urine FEW /HPF; Protein,Urine <15 mg/dL mg/dL (Negative); Urobilinogen,Urine < 2.0 mg/dL (<2.0)
[2021-10-01 21:56] LABS: Basophils # (Auto) 0.1 K/mm3 (0.0-0.1); Basophils % (Auto) 0.8 % (0.0-1.8); Eosinophils # (Auto) 0.8 K/mm3 (0.0-0.4); Eosinophils % (Auto) 6.4 % (0.0-4.3); Hematocrit 36.5 % (30.3-42.9); Hemoglobin 11.9 gm/dl (10.1-14.3); Lymphocytes % (Auto) 32.6 % (13.4-35.0); Mean Corpuscular HGB Conc 33 % (30-34); Mean Corpuscular Volume 87 fl (79-97); Monocytes # (Auto) 1.2 K/mm3 (0.0-0.8); Monocytes % (Auto) 10.1 % (0.0-7.3); Platelet Count 339 K/mm3 (140-440); Red Blood Count 4.21 M/mm3 (3.65-5.03); Red Cell Distribution Width 14.6 % (13.2-15.2)
[2021-10-01 22:08] LABS: Alanine Aminotransferase 9 units/L (7-56); Albumin 3.5 g/dL (3.9-5); BUN/Creatinine Ratio 15; Blood Urea Nitrogen 12 mg/dL (7-17); Calcium 8.1 mg/dL (8.4-10.2); Hemolysis Index 16
== END 2021-10-02 | disposition left against medical advice (07) ==
LOC: ED 19:53
DX: M54.50 Low back pain, unspecified (principal); Z53.21 Procedure and treatment not carried out due to patient leaving prior to being seen by health care provider
CPT/HCPCS: 36415; 80053; 81001; 85025

== ENCOUNTER 2021-10-02 02:15 | Emergency (ER) | payer OTHER ==
[2021-10-02 02:23] VITALS: BP 117/69
[2021-10-02] MEDS ORDERED: IBUPROFEN 600 MG TAB PO ONE (03:02)
[2021-10-02] MEDS ORDERED: FLUCONAZOLE 100 MG TAB PO ONE (03:17)
--- NOTE | 2021-10-02 03:48 | Emergency Department Report ---
ED Female HPI - General Chief complaint: Urogenital-Female Stated complaint: VAGINAL ITCY/LOWER BACK PAIN Source: patient Mode of arrival: Ambulatory Limitations: No Limitations - History of Present Illness Initial comments: Patient is a 46-year-old -Citizen Of [place] female with no past medical history who presents to the ED with complaint of acute onset persistent vaginal ir ritation, vaginal itching with thick white cottage cheese discharge for the last 1 week after completing a course of antibiotics for bacterial vaginosis, metronidazole. Patient states that the symptoms have been constant and persistent. Patient states that she has used various soaps thinking this would be able to help relieve her symptoms with no relief. Patient denies vaginal bleeding, dysuria, urinary frequency and urgency, low back pain, chest pain or shortness of breath, nausea and vomiting, fever, chills, cough, sore throat or back pain. MD Complaint: vaginal discharge (Thick white cottage cheese vaginal discharge), other (Vaginal irritation and itching) -: Sudden, week(s) (1) Location: labia, other (Vaginal) Radiation: non-radiating Severity: moderate Severity scale (0 -10): 5 Quality: dull, burning, aching Consistency: constant Improves with: none Worsens with: urination Are you Now?: No Associated Symptoms: denies other symptoms, vaginal discharge. denies: vaginal bleeding, abdominal pain, nausea/vomiting, fever/chills, headaches, loss of appetite, dysuria, hematuria, rash, seizure, shortness of breath, syncope, weakness - Related Data Sexually active: Yes Previous Rx's Medication Instructions Recorded Last Taken Type HYDROcodone/APAP 5-325 [[place] 1 each PO Q6HR PRN #12 tablet 11/12/15 Unknown Rx 5/325] Tobramycin/Dexameth 0.3-0.1% 1 drops OS Q6H #1 bottle 11/12/15 Unknown Rx [Tobradex] Ibuprofen [Motrin] 600 mg PO Q8H PRN #30 tablet 09/28/17 Unknown Rx Acetaminophen/Codeine [Tylenol 1 tab PO Q6H PRN #15 tab 12/15/18 Unknown Rx /Codeine # 3 tab] Fluconazole (Nf) [Diflucan TAB] 150 mg PO ONCE #1 tablet 12/15/18 Unknown Rx Naproxen [Naprosyn TAB] 500 mg PO Q12H PRN #20 tablet 12/15/18 Unknown Rx Ondansetron [Zofran Odt] 4 mg PO Q6HR PRN #15 tab.rapdis 12/15/18 Unknown Rx metroNIDAZOLE [Flagyl TAB] 500 mg PO Q12HR #14 tab 04/03/19 Unknown Rx Naproxen [EC-Naprosyn] 500 mg PO BID PRN #14 tablet.dr 04/05/20 Unknown Rx Prednisone [predniSONE 10 mg 10 mg PO .TAPER #1 tab.ds.pk 04/05/20 Unknown Rx (6-Day Pack, 21 Tabs)] Triamcinolone 0.1% [Kenalog 0.1% 1 applic TP TID #1 tube 04/05/20 Unknown Rx CREAM] methOCARBAMOL [Robaxin TAB] 500 mg PO BID PRN #14 tab 04/05/20 Unknown Rx Fluconazole [Diflucan TAB] 200 mg PO QDAY #2 tablet 10/02/21 Unknown Rx Nystatin Oint [Mycostatin Oint] 1 applicatio TP BID #1 tube 10/02/21 Unknown Rx Allergies Allergy/AdvReac Type Severity Reaction Status Date / Time No Known Allergies Allergy Verified 10/02/21 03:21 ED Review of Systems ROS: Stated complaint: VAGINAL ITCY/LOWER BACK PAIN Other details as noted in HPI Constitutional: denies: chills, fever Eyes: denies: eye pain, eye discharge, vision change ENT: denies: ear pain, throat pain Respiratory: denies: cough, shortness of breath, wheezing Cardiovascular: denies: chest pain, palpitations Endocrine: no symptoms reported Gastrointestinal: denies: abdominal pain, nausea, diarrhea Genitourinary: discharge (White discharge), other (Vaginal irritation and itching). denies: urgency, dysuria, frequency, hematuria, abnormal menses Musculoskeletal: denies: back pain, joint swelling, arthralgia Skin: denies: rash, lesions Neurological: denies: headache, weakness, paresthesias Psychiatric: denies: anxiety, depression Hematological/Lymphatic: denies: easy bleeding, easy bruising ED Past Medical Hx - Past Medical History Previous Medical History?: Yes Additional medical history: left ankle pain - Surgical History Past Surgical History?: Yes Hx Cholecystectomy: Yes Additional Surgical History: Hernia Repair, Tubal Ligation, , left ankl e surgery - Social History Smoking Status: Never Smoker Substance Use Type: None - Medications Home Medications: Home Medications Medication Instructions Recorded Confirmed Last Taken Type HYDROcodone/APAP 5-325 [[place] 1 each PO Q6HR PRN #12 tablet 11/12/15 Unknown Rx 5/325] Tobramycin/Dexameth 0.3-0.1% 1 drops OS Q6H #1 bottle 11/12/15 Unknown Rx [Tobradex] Ibuprofen [Motrin] 600 mg PO Q8H PRN #30 tablet 09/28/17 Unknown Rx Acetaminophen/Codeine [Tylenol 1 tab PO Q6H PRN #15 tab 12/15/18 Unknown Rx /Codeine # 3 tab] Fluconazole (Nf) [Diflucan TAB] 150 mg PO ONCE #1 tablet 12/15/18 Unknown Rx Naproxen [Naprosyn TAB] 500 mg PO Q12H PRN #20 tablet 12/15/18 Unknown Rx Ondansetron [Zofran Odt] 4 mg PO Q6HR PRN #15 tab.rapdis 12/15/18 Unknown Rx metroNIDAZOLE [Flagyl TAB] 500 mg PO Q12HR #14 tab 04/03/19 Unknown Rx Naproxen [EC-Naprosyn] 500 mg PO BID PRN #14 tablet.dr 04/05/20 Unknown Rx Prednisone [predniSONE 10 mg 10 mg PO .TAPER #1 tab.ds.pk 04/05/20 Unknown Rx (6-Day Pack, 21 Tabs)] Triamcinolone 0.1% [Kenalog 0.1% 1 applic TP TID #1 tube 04/05/20 Unknown Rx CREAM] methOCARBAMOL [Robaxin TAB] 500 mg PO BID PRN #14 tab 04/05/20 Unknown Rx Fluconazole [Diflucan TAB] 200 mg PO QDAY #2 tablet 10/02/21 Unknown Rx Nystatin Oint [Mycostatin Oint] 1 applicatio TP BID #1 tube 10/02/21 Unknown Rx ED Physical Exam - General Limitations: No Limitations General appearance: alert, in no apparent distress - Head Head exam: Present: atraumatic, normocephalic, normal inspection - Eye Eye exam: Present: normal appearance, PERRL, EOMI Pupils: Present: normal accommodation - ENT ENT exam: Present: normal exam, normal orophraynx, mucous membranes moist, TM's normal bilaterally, normal external ear exam - Neck Neck exam: Present: normal inspection, full ROM - Respiratory Respiratory exam: Present: normal lung sounds bilaterally. Absent: respiratory distress, wheezes, rales, rhonchi, chest wall tenderness, accessory muscle use, decreased breath sounds - Cardiovascular Cardiovascular Exam: Present: regular rate, normal rhythm, normal heart sounds. Absent: systolic murmur, diastolic murmur, rubs, gallop - GI/Abdominal GI/Abdominal exam: Present: soft, normal bowel sounds. Absent: tenderness, guarding, rebound, hyperactive bowel sounds, hypoactive bowel sounds, organomegaly - Bi-manual exam: Present: other (Pelvic exam deferred at this time) - Extremities Exam Extremities exam: Present: normal inspection, full ROM, normal capillary refill. Absent: tenderness - Back Exam Back exam: Present: normal inspection, full ROM. Absent: tenderness, CVA tenderness (R), CVA tenderness (L), muscle spasm, paraspinal tenderness, vertebral tenderness - Neurological Exam Neurological exam: Present: alert, oriented X3, CN II-XII intact, normal gait, reflexes normal - Psychiatric Psychiatric exam: Present: normal affect, normal mood - Skin Skin exam: Present: warm, dry, intact, normal color. Absent: rash ED Course Vital Signs 10/02/21 02:22 Temperature 98.6 F Pulse Rate 93 H Respiratory 18 Rate Blood Pressure 117/69 [Left] O2 Sat by Pulse 99 Oximetry ED Medical Decision Making - Medical Decision Making This is a 46-year-old -Citizen Of [place] female with no past medical history who presents to the ED with complaint of acute onset persistent vaginal irritation, vaginal itching with thick white cottage cheese discharge for the last 1 week after completing a course of antibiotics for bacterial vaginosis, metronidazole. Patient states that the symptoms have been constant and persistent. Patient states that she has used various soaps thinking this would be able to help relieve her symptoms with no relief. In the ED, patient is alert and oriented x3 and is not in any distress. Lab test results were reviewed and are all nonactionable except from acute leukocytosis of 12,200. Urinalysis is unremarkable. Based on the history and physical exam findings, and the lab test results, the patient was treated empirically in the ED with Diflucan for suspected candidal vaginitis. Patient was discharged home on more antifungal me dications and advised to follow-up with her [employer] [employer] physician in 5 to 7 days for reevaluation. Patient advised return to the ED immediately if symptoms get worse. - Differential Diagnosis Candidal vaginitis; bacterial vaginosis; UTI; allergic reaction Critical care attestation.: If time is entered above; I have spent that time in minutes in the direct care of this critically ill patient, excluding procedure time. ED Disposition Clinical Impression: Vaginitis due to Margaret, Vaginal irritation Disposition: HOME / SELF CARE / HOMELESS Is pt being admited?: No Does the pt Need Aspirin: No Condition: Stable Instructions: Vaginal Yeast Infection, Adult, Vaginitis, [id number] Additional Instructions: Take medication as advised, drink plenty of fluids, follow-up with your primary care physician in 7 to 10 days for reevaluation. Avoid using soap to clean the your vaginal area. Return to the ED immediately if symptoms get worse. Prescriptions: Fluconazole [Diflucan TAB] 200 mg PO QDAY #2 tablet Nystatin Oint [Mycostatin Oint] 1 applicatio TP BID #1 tube Referrals: [facility] [Provider Group] - 7-10 days Time of Disposition: 03:48 Print Language: DANISH
[2021-10-02] MEDS ORDERED: FLUCONAZOLE 200 MG TAB PO SCH (10:00)
== END 2021-10-02 04:50 | disposition home or self-care (01) ==
LOC: ED 02:15
DX: B37.3 Candidiasis of vulva and vagina (principal); N76.89 Other specified inflammation of vagina and vulva; Z90.49 Acquired absence of other specified parts of digestive tract
CPT/HCPCS: 99282